=== PATIENT | female | born 1965 ===

== ENCOUNTER 2023-09-29 08:27 | Day surgery (SDC) | payer OTHER ==
[~2023-09-29] VITALS: Ht 149.9 cm; Wt 49.9 kg
== END 2023-09-29 17:00 | disposition home or self-care (01) ==
LOC: O/R 08:27 → CIR.AMB 08:27 → SURH 08:27 → EDSTATUS 09:15 → SURH 09:15 → CIR.AMB 17:00 → O/R 17:00
PROVIDERS: ATTEND Surgery
DX: K62.1 Rectal polyp (principal)